=== PATIENT | female | born 1965 | race Caucasian/White ===

== ENCOUNTER 2017-09-13 08:08 | Day surgery (SDC) | payer OTHER ==
[~2017-09-13 08:08] MED LIST: BUPIVACAINE/EPI 0.5% 30 ML SDV ONE; ceFAZolin 2 GM/SWFI 2 GM/20 ML SYR IVP ONE
[2017-09-13] MEDS ORDERED: LR 1,000 ML IV ONE (08:23)
[2017-09-13] MEDS ORDERED: LIDOCAINE 1% 2 ML INJ ID PRN (08:23)
[2017-09-13] MEDS ORDERED: ceFAZolin 2 GM/SWFI 20 ML SYR IVP ONE (09:23)
--- NOTE | 2017-09-13 09:57 | PDHPUP ---
History & Physical Update H&P update statement: This history and physical update is based on an assessment of the patient which was completed after admission or registration (within 24 hours), but prior to the surgery/procedure. H&P update: H&P reviewed & patient examined, no change in patient's condition since H&P completed
--- NOTE | 2017-09-13 10:18 | PDANEPAE ---
ANE History of Present Illness 52 yo female for L knee scope. ANE Past Medical History - Cardiovascular History Hx Hypertension: Yes Hx Arrhythmias: No Hx Chest Pain: No Hx Coronary Artery / Peripheral Vascular Disease: No Hx CHF / Valvular Disease: No Hx Palpitations: No - Pulmonary History Hx COPD: No Hx Asthma/Reactive Airway Disease: Yes Hx Recent Upper Respiratory Infection: No Hx Oxygen in Use at Home: No Hx Sleep Apnea: No Sleep Apnea Screening Result - Last Documented: Positive Pulmonary History Comment: adult onset - Neurologic History Hx Cerebrovascular Accident: No Hx Seizures: No Hx Dementia: No - Endocrine History Hx Diabetes: No Hypothyroid: Yes Obesity: severe Endocrine History Comment: pre diabetic - Renal History Hx Renal Disorders: No - Liver History Hx Hepatic Disorders: No - Neurological & Psychiatric Hx Hx Neurological and Psychiatric Disorders: Yes Neurological / Psychiatric History Comment: depression. pudendal nueralgia - Cancer History Hx Cancer: No - Congenital Disorder History Hx Congenital Disorders: Yes Congenital History Comment: depression - GI History Hx Gastrointestinal Disorders: No - Other Health History Other Health History: none - Chronic Pain History Chronic Pain: Yes (nerve pain, genital area) - Surgical History Prior Surgeries: 02/13 implant sacral neuro stimulator R gluteal area. colonosccopy. post/ant L5/S1 fusion ANE Review of Systems Review of Systems: - Exercise capacity METS (RN): 4 METS - Systems Constitutional: Reports: no symptoms Cardiac: Reports: no symptoms Respiratory: Reports: no symptoms Muscolosketal: Reports: other (pudendal nerve pain - chronic, no narcotic meds) ANE Patient History - Allergies Allergies/Adverse Reactions: ketamine Allergy (Intermediate, Verified 09/06/17 12:12) Anxiety promethazine [From Phenergan] Allergy (Intermediate, Verified 09/06/17 12:12) Anxiety - Home Medications Home Medications: Advair 250/50 (*) 09/06/17 [Last Taken 09/13/17] Amitriptyline HCl 09/06/17 [Last Taken 09/12/17] Amlodipine Besylate 09/06/17 [Last Taken 09/13/17] Atorvastatin Calcium 09/06/17 [Last Taken 09/12/17] Cevimeline HCl 09/06/17 [Last Taken 09/13/17] Levothyroxine 09/06/17 [Last Taken 09/13/17] Losartan/Hydrochlorothiazide 09/06/17 [Last Taken 09/12/17] Quetiapine Fumarate 09/06/17 [Last Taken 09/13/17] Topiramate 09/06/17 [Last Taken 09/13/17] Trintellix 09/06/17 [Last Taken 09/13/17] Venlafaxine HCl 09/06/17 [Last Taken 09/13/17] Vyvanse 09/06/17 [Last Taken 09/12/17] Zolpidem Tartrate 09/06/17 [Last Taken 09/12/17] - NPO status NPO Since - Liquids (Date): 09/13/17 NPO Since - Liquids (Time): 06:15 (sips with meds this AM) NPO Since - Solids (Date): 09/12/17 NPO Since - Solids (Time): 18:00 - Anes Hx Anes Hx: no prior problems - Smoking Hx Smoking Status: Never smoked Marijuana use: No - Alcohol Use Alcohol Use: Rarely (1-2/month) - Family Anes Hx Family Anes Hx: neg - N/A Family Hx Anesthesia Complications: none ANE Labs/Vital Signs - Vital Signs Blood Pressure: 131/69 Heart Rate: 90 Respiratory Rate: 12 O2 Sat (%): 91 Height: 165.1 cm Weight: 128.82 kg ANE Physical Exam - Airway Mallampati Score: Class 2 Mouth exam: normal dental/mouth exam - Pulmonary Pulmonary: clear to auscultation - Cardiovascular Cardiovascular: regular rate and rhythym - ASA Status ASA Status: III ANE Anesthesia Plan Anesthesia Plan: general endotracheal anesthesia
[2017-09-13] MEDS ORDERED: fentaNYL 100 MCG/2 ML INJ ONE ×3 (10:28→11:45)
[2017-09-13] MEDS ORDERED: DEXAMETHASONE 4 MG/ML VIAL ONE (10:28)
[2017-09-13] MEDS ORDERED: ROCURONIUM 50 MG/5 ML VIAL ONE (10:28)
[2017-09-13] MEDS ORDERED: LIDOCAINE 2% 5 ML SDV ONE (10:28)
[2017-09-13] MEDS ORDERED: PROPOFOL 200 MG/20 ML VIAL ONE ×2 (10:28→10:29)
[2017-09-13] MEDS ORDERED: ONDANSETRON 4 MG/2 ML VIAL ONE (10:47)
[2017-09-13] MEDS ORDERED: SUGAMMADEX SODIUM 200 MG/2 ML VIAL IVP ONE (11:24)
[2017-09-13] MEDS ORDERED: LR 500 ML IV PRN (11:31)
[2017-09-13] MEDS ORDERED: NALOXONE HCL 0.4 MG/ML INJ IVP PRN ×2 (11:31→11:33)
[2017-09-13] MEDS ORDERED: HYDROCODONE/APAP 5/325 TAB PO PRN (11:31)
[2017-09-13] MEDS ORDERED: METOCLOPRAMIDE 10 MG/2 ML VIAL IVP PRN (11:31)
[2017-09-13] MEDS ORDERED: ACETAMINOPHEN 500 MG TAB PO PRN (11:31)
[2017-09-13] MEDS ORDERED: ALBUTEROL 3 ML DEYVIAL IH PRN (11:31)
[2017-09-13] MEDS: fentaNYL 100 MCG/2 ML INJ IVP PRN ×3 (11:46→12:09)
[2017-09-13 11:57] VITALS: PULSE 85
--- NOTE | 2017-09-13 11:58 | POSTOPPROG ---
Post Op Note Date of Operation: 09/13/17 Surgeon: Rain Diane Daily Sales Audit Clerk: Germania Rico Anesthesiologist: Dr. Haji Anesthesia: GET(General Endotracheal), Spinal, Other (Specify) (GET only, no spinal) Pre-op Diagnosis: left knee pain Post-op Diagnosis: left knee bilateral partial meniscal tear Indication: left knee pain Procedure: bilateral partial meniscectomy Inf/Abcess present in the surg proc area at time of surgery?: No EBL: Minimal Complications: none
--- NOTE | 2017-09-13 11:59 | SOAPPROG ---
[facility] Progress Note Assessment/Plan: Assessment/Plan: - 52y/o female s/p left knee bilateral partial meniscectomy - orders as written - home when PACU criteria met - call with issues or concerns - Miguel Ángelto starts tomorrow x 12 days 09/13/17 11:58 Subjective: Mild knee and low back pain Objective: Vital Signs Temp Pulse Resp BP Pulse Ox 36.5 C 85 12 104/61 98 09/13/17 11:38 09/13/17 11:38 09/13/17 11:51 09/13/17 11:51 09/13/17 11:51 NAD, waking from anesthesia, no distress EOMi, face symmetric MAEx4 incisions clean, dressed ICD10 Worksheet Patient Problems: Problems Problem Status Onset Knee pain Acute - ICD10 Problem Qualifiers (1) Knee pain
--- NOTE | 2017-09-13 12:22 | POSTANESTH ---
Post Anesthetic Evaluation Cardiovascular Status: Normal, Stable Respiratory Status: Normal, Stable Level of Consciousness/Mental Status: Can Participate in Eval, Mildly Sleepy, Arousable Pain Control: Adequate, Prn Tx Ordered Nausea/Vomiting Control: Adequate, Prn Tx Ordered Complications Possibly Related to Anesthesia: None Noted
[2017-09-13 12:47] VITALS: TEMP 97.5
[2017-09-13] MEDS ORDERED: OXYCODONE/APAP 5/325 TAB PO PRN (12:49)
[2017-09-13] MEDS ORDERED: OXYCODONE/APAP 5/325 TAB ONE (13:09)
[2017-09-13 16:49] VITALS: RESP 16; O2SAT 98
[2017-09-13 16:50] VITALS: BP 108/71
--- NOTE | 2017-09-13 19:53 | GOP ---
[f rep st] OPERATIVE REPORT DATE OF OPERATION: 09/13/2017 SURGEON: Rain Diane MD COMPLAINT OPERATOR: Germania Rico PA-C. ANESTHESIA: General. PREOPERATIVE DIAGNOSIS: Medial meniscus tear, left knee. POSTOPERATIVE DIAGNOSIS: Bilateral meniscus tears with chondral lesion medial femoral condyle left k nee. PROCEDURE PERFORMED: Arthroscopy, bilateral meniscectomy with chondroplasty medial femoral condyle l eft knee. FINDINGS: A diagnostic arthroscopy of the left knee was performed with the following findings: The patient had grade 2 chondromalacia of the patella. This involved the inferior and medial aspect of t he patella. The remainder of the patella was intact. The trochlear groove was mostly intact aside f rom distally along the medial femoral condyle just proximal to the joint line where there was an area of grade 2 to 3 chondromalacia. The medial compartment was entered, and the patient had a tear in t he posterior root of the medial meniscus. There was a chondral lesion on the medial femoral condyle on the weightbearing portion. This is approximately 12 to 15 mm in diameter. There were loose flaps of articular cartilage which were debrided. The tibial plateau was intact. A partial medial menisce ctomy was performed. The posterior 20% to 25% of the meniscus was excised extending back to the post erior root. The ACL was visualized in the intercondylar notch and noted to be intact. There was als o degenerative tear of the middle third of the lateral meniscus. This was trimmed with the baskets a nd shaver. It was trimmed back to a stable rim. The remainder of the lateral compartment was fairly normal. ESTIMATED BLOOD LOSS: Minimal. DESCRIPTION OF PROCEDURE: The patient was taken to the operating room, placed in a supine position o n the operating table. Following induction of adequate general inhalation anesthesia, the knee and l eg were prepped and draped in the usual sterile manner. The patient received 1 g of IV Ancef. The e ndoscope was introduced through a lateral portal and the instrumentation through a medial portal. A diagnostic arthroscopy was performed with the above noted findings. Our attention was turned first t o the pathology in the medial compartment. The medial meniscus was trimmed with the baskets and the shaver. It was trimmed back to a stable rim. The meniscectomy involved the posterior 25% of the men iscus extending back to the posterior root. The chondral lesion on the medial femoral condyle was de brided with a shaver. The instruments were then placed laterally, and a partial lateral meniscectomy was also performed. At the completion of the procedure, the instrumentation was removed, and the kn ee was injected with 20 cc of 0.5% Marcaine with epinephrine. Portals were closed using 4-0 nylon in an interrupted fashion. Sterile dressings were applied. The patient tolerated the procedure well, and there were no complications. Estimated blood loss minimal. Final sponge, needle counts were cor rect. The patient was transported to the recovery room in good condition. /[id number]/MODL
== END 2017-09-13 16:40 | disposition home or self-care (01) ==
LOC: FSGY 08:08
PROVIDERS: ATTEND Orthopaedic Surgery
PROC: 0SBD4ZZ Excision of Left Knee Joint, Percutaneous Endoscopic Approach (ICD-10-PCS; principal; 2017-09-13 10:45)
PROC: 0MQP4ZZ Repair Left Knee Bursa and Ligament, Percutaneous Endoscopic Approach (ICD-10-PCS; principal; 2017-09-13 10:45)
DX: M23.232 Derangement of other medial meniscus due to old tear or injury, left knee (principal); J45.909 Unspecified asthma, uncomplicated; F32.9 Major depressive disorder, single episode, unspecified; I10 Essential (primary) hypertension; E78.00 Pure hypercholesterolemia, unspecified; M22.42 Chondromalacia patellae, left knee
CPT/HCPCS: J0690; J1100; J2405; J2704; J3010